=== PATIENT | male | born 1995 | race Caucasian/White ===

== ENCOUNTER 2016-07-17 20:55 | Emergency (ER) | payer OTHER ==
[2016-07-17 21:06] VITALS: BP 135/69
[2016-07-17] MEDS ORDERED: predniSONE TAB* 20 MG PO ONE (21:25)
[2016-07-17] MEDS ORDERED: hydrOXYzine HCL TAB* 50 MG PO ONE (21:25)
[2016-07-17] MEDS ORDERED: hydrOXYzine HCL TAB* 25 MG PO ONE (21:35)
--- NOTE | 2016-07-17 21:35 | UC ---
Throat Pain/Nasal Baron HPI - HPI Summary HPI Summary: Has bad allergies in the spring and early summer, has been having significant symptoms for more than a week. Much worse today after spending all day outside, eyes have turned very red and itchy and allergy eye drops are not helping. Taking daily antihistamine but doesn't use steroid nasal spray. no fevers, cough, or trouble breathing. - History of Current Complaint Chief Complaint: UCRespiratory Stated Complaint: SNEEZING,EYE IRRITATION,ALLERGIES Time Seen by Provider: 07/17/16 21:03 Hx Obtained From: Patient Onset/Duration: Gradual Onset, Lasting Days Severity: Moderate Cough: None Associated Signs & Symptoms: Positive: Nasal Discharge Related History: Seasonal Allergies - Allergies/Home Medications Allergies/Adverse Reactions: Allergies Allergy/AdvReac Type Severity Reaction Status Date / Time ENVIRONMENTAL Allergy Severe Anaphylatic Uncoded 07/17/16 21:33 Shock PMH/Surg Hx/FS Hx/Imm Hx Previously Healthy: Yes Other History Of: Negative For: HIV, Hepatitis B, Hepatitis C, Anticoagulant Therapy - Surgical History Surgical History: None - Family History Known Family History: Positive: Cardiac Disease, Hypertension, Diabetes - Social History Lives: With Family Alcohol Use: Weekly Substance Use Type: None, Marijuana - He used to smoke 2-3 grams of marijuana a day. He stopped 6 days ago. Substance Use Comment - Amount & Last Used: [place] Smoking Status (MU): Never Smoked Tobacco - Immunization History Vaccination Up to Date: Yes Review of Systems Constitutional: Negative Skin: Negative Eyes: Negative ENT: Nasal Discharge Respiratory: Negative Cardiovascular: Negative Gastrointestinal: Negative Genitourinary: Negative Motor: Negative Neurovascular: Negative Musculoskeletal: Negative Neurological: Negative Psychological: Negative All Other Systems Reviewed And Are Negative: Yes Physical Exam Triage Information Reviewed: Yes Appearance: Well-Appearing, No Pain Distress Vital Signs: Initial Vital Signs Temp 99.2 F 07/17/16 21:05 Pulse 67 07/17/16 21:05 Resp 16 07/17/16 21:05 BP 135/69 07/17/16 21:05 Pulse Ox 99 07/17/16 21:05 Vital Signs Reviewed: Yes Eye Exam: Other - EOM-I, PERRL Eyes: Positive: Conjunctiva Inflamed - bilat ENT: Positive: Hearing grossly normal, Nasal congestion, Nasal drainage, TMs normal Dental Exam: Normal Neck exam: Normal Neck: Positive: Supple, Nontender, No Lymphadenopathy Respiratory Exam: Normal Respiratory: Positive: Chest non-tender, Lungs clear, Normal breath sounds, No respiratory distress, No accessory muscle use Cardiovascular Exam: Normal Cardiovascular: Positive: RRR, No Murmur Musculoskeletal Exam: Normal Neurological Exam: Normal Neurological: Positive: Alert Psychological Exam: Normal Skin Exam: Normal Throat Pain/Nasal Course/Dx - Differential Dx/Diagnosis Provider Diagnoses: allergic rhinitis. allergic conjunctivitis Discharge - Discharge Plan Condition: Stable Disposition: HOME Patient Education Materials: Allergic Rhinitis (ED), Conjunctivitis (ED) Referrals: John Chacon MD [Primary Care Provider] - Additional Instructions: If you do not have clear improvement within the next week, you can see your primary care provider for a follow-up visit.
== END 2016-07-17 21:40 | disposition home or self-care (01) ==
LOC: UCEAST 20:55
DX: J30.9 Allergic rhinitis, unspecified (principal); H10.10 Acute atopic conjunctivitis, unspecified eye
CPT/HCPCS: 99202; A9270-GY; G0463; J7512

== ENCOUNTER 2017-01-23 23:17 | Emergency (ER) | payer OTHER ==
[2017-01-24] MEDS ORDERED: Acetaminophen TAB* 325 MG PO ONE (01:25)
[2017-01-24] MEDS ORDERED: Ondansetron ODT TAB* 4 MG PO ONE (01:56)
[2017-01-24] MEDS ORDERED: Amoxicillin PO (*) 250 MG CAP PO ONE (01:57)
--- NOTE | 2017-01-24 01:59 | ED ---
Throat Pain/Nasal Congestion - HPI Summary HPI Summary: 21M presents with fever and sore throat for a day. He is [place]. He admits to fatigue. He admits to nausea. He denies any chest pain or SOB. He denies any cough. He took ibuprofen for the fever. He denies any vomiting. He denies a history of strept. He denies any sinus congestion or ear pain. - History of Current Complaint Chief Complaint: EDFever Time Seen by Provider: 01/24/17 01:47 - Allergies/Home Medications Allergies/Adverse Reactions: Allergies Allergy/AdvReac Type Severity Reaction Status Date / Time ENVIRONMENTAL Allergy Severe Anaphylatic Uncoded 01/23/17 23:25 Shock PMH/Surg Hx/FS Hx/Imm Hx Endocrine/Hematology History: Denies: Hx Anticoagulant Therapy, Hx Diabetes, Hx Thyroid Disease Cardiovascular History: Denies: Hx Congestive Heart Failure, Hx Deep Vein Thrombosis, Hx Hypertension , Hx Myocardial Infarction, Hx Pacemaker/ICD Respiratory History: Denies: Hx Asthma, Hx Chronic Obstructive Pulmonary Disease (COPD), Hx Lung Cancer, Hx Pneumonia, Hx Pulmonary Embolism GI History: Denies: Hx Gall Bladder Disease, Hx Gastrointestinal Bleed, Hx Ulcer, Hx Urosepsis History: Denies: Hx Kidney Stones, Hx Renal Disease Neurological History: Reports: Hx Seizures - He had seizures when he was a child , but none since age [age] Denies: Hx Dementia, Hx Migraine, Hx Transient Ischemic Attacks (TIA) Psychiatric History: Reports: Hx Community Mental Health Tx, Hx of Violent Episodes Against Others, Hx Substance Abuse Denies: Hx Anxiety, Hx Eating Disorder, Hx Depression, Hx Inpatient Treatment , Hx Schizophrenia, Hx Bipolar Disorder - Surgical History Surgery Procedure, Year, and Place: denies Infectious Disease History: No Infectious Disease History: Denies: Hx Clostridium Difficile, Hx Hepatitis, Hx Human Immunodeficiency Virus (HIV), Hx of Known/Suspected MRSA, Hx Shingles, Hx Tuberculosis, Hx Known/ Suspected VRE, Hx Known/Suspected VRSA, History Other Infectious Disease, Traveled Outside the [place] in Last 30 Days - Family History Known Family History: Positive: Cardiac Disease, Hypertension, Diabetes - Social History Alcohol Use: Weekly Substance Use Type: Reports: None, Marijuana - He used to smoke 2-3 grams of marijuana a day. He stopped 6 days ago. Substance Use Comment - Amount & Last Used: [place] ON Smoking Status (MU): Never Smoked Tobacco Review of Systems Positive: Fever Positive: Sore Throat Negative: Chest Pain Negative: Shortness Of Breath All Other Systems Reviewed And Are Negative: Yes Physical Exam Triage Information Reviewed: Yes Vital Signs On Initial Exam: Initial Vitals Temp Pulse Resp BP Pulse Ox 100.8 F 97 16 114/79 98 01/23/17 23:20 01/23/17 23:20 01/23/17 23:20 01/23/17 23:20 01/23/17 23:20 Vital Signs Reviewed: Yes Appearance: Positive: Ill-Appearing Skin: Positive: Warm, Dry Head/Face: Positive: Normal Head/Face Inspection Eyes: Positive: Normal, EOMI, GRIFFIN, Conjunctiva Clear ENT: Positive: Pharyngeal erythema, TMs normal, Tonsillar swelling - +1, Uvula midline, Other - soft palate symmetric. Negative: Tonsillar exudate, Trismus, Muffled voice Neck: Positive: Supple, Nontender, No Lymphadenopathy Respiratory/Lung Sounds: Positive: Clear to Auscultation, Breath Sounds Present Cardiovascular: Positive: Normal, RRR Abdomen Description: Positive: Nontender, Soft Bowel Sounds: Positive: Present Musculoskeletal: Positive: Normal Neurological: Positive: Normal Psychiatric: Positive: Normal Diagnostics - Vital Signs Vital Signs Temp Pulse Resp BP Pulse Ox 01/23/17 23:20 100.8 F 97 16 114/79 98 - Laboratory Lab Results: Lab Results 01/24/17 01/24/17 Range/Units 01:05 01:07 Influenza A (Rapid) Negative (Negative) Influenza B (Rapid) Negative (Negative) Group A Strep Rapid Positive H (Negative) Lab Statement: Any lab studies that have been ordered have been reviewed, and results considered in the medical decision making process. EENT Course/Dx - Course Course Of Treatment: 21M presents with fever and sore throat for a day. He is [place]. He admits to fatigue. He admits to nausea. He denies any chest pain or SOB. He denies any cough. He took ibuprofen for the fever. He denies any vomiting. He denies a history of strept. He denies any sinus congestion or ear pain. on exam tonsils+1, uvula midline soft palate symmetric. strept pos. will treat with amoxicillin. patient understand and agrees with plan. - Differential Diagnoses Differential Diagnoses: Pharyngitis, Tonsilitis, URI/Bronchitis - Diagnoses Provider Diagnoses: Streptococcal sore throat Discharge - Discharge Plan Condition: Good Disposition: HOME Prescriptions: Amoxicillin PO (*) [Amoxicillin 500 MG CAP*] 500 mg PO Q12H #19 cap Patient Education Materials: Strep Throat (ED) Referrals: John Chacon MD [Primary Care Provider] - Additional Instructions: Take antibiotic twice a day for 10 days Take Tylenol or ibuprofen for pain/fever every 6 hours Can gargle salt water, use cough drops or products such as cloraseptic spray for pain Return to ED if develop difficulty breathing or unable to manage secretions, any new or worsening symptoms
[2017-01-24] MEDS ORDERED: Amoxicillin PO (*) 500 MG CAP PO ONE (02:19)
[2017-01-24 02:55] VITALS: BP 146/56
== END 2017-01-24 02:57 | disposition home or self-care (01) ==
LOC: ED 23:17
DX: J02.0 Streptococcal pharyngitis (principal); R53.83 Other fatigue; R11.0 Nausea; R56.9 Unspecified convulsions
CPT/HCPCS: 87502; 87651; 99283; A9270-GY

== ENCOUNTER 2017-06-13 10:16 | Emergency (ER) | payer SELFPAY ==
[2017-06-13 10:27] VITALS: BP 131/55
--- NOTE | 2017-06-13 10:40 | UC ---
Throat Pain/Nasal Baron HPI - HPI Summary HPI Summary: Pt. is a 21 y.o male who presents to the ER for fever, head ache and sore throat that started last night. Pt. denies cough, SOB, abd. pain, V/D. He has no past medical hx. Pt. to tylenol [employer]GER. Symptoms are mild in severity. Symptoms are improved with analgesics. - History of Current Complaint Hx Obtained From: Patient Pain Intensity: 6 <Karl Guerra - Last Filed: 06/13/17 11:08> <Gaby Aguilera - Last Filed: 06/13/17 11:24> - History of Current Complaint Chief Complaint: UCRespiratory Stated Complaint: HEADACHE, SORE THROAT Time Seen by Provider: 06/13/17 10:29 - Allergies/Home Medications Allergies/Adverse Reactions: Allergies Allergy/AdvReac Type Severity Reaction Status Date / Time ENVIRONMENTAL Allergy Severe Anaphylatic Uncoded 06/13/17 10:27 Shock PMH/Surg Hx/FS Hx/Imm Hx Previously Healthy: Yes Other History Of: Negative For: HIV, Hepatitis B, Hepatitis C, Anticoagulant Therapy - Surgical History Surgical History: None Surgery Procedure, Year, and Place: denies - Family History Known Family History: Positive: Cardiac Disease, Hypertension, Diabetes - Social History Occupation: Unemployed Lives: With Family Alcohol Use: None Substance Use Type: None Substance Use Comment - Amount & Last Used: [place] ON Smoking Status (MU): Never Smoked Tobacco - Immunization History Vaccination Up to Date: Yes <Karl Guerra - Last Filed: 06/13/17 11:08> Review of Systems Constitutional: Fever, Chills, Fatigue Skin: Negative Eyes: Negative ENT: Sore Throat, Sinus Congestion Respiratory: Negative Cardiovascular: Negative Gastrointestinal: Negative Genitourinary: Negative Neurovascular: Negative Musculoskeletal: Negative Neurological: Headache Is Patient Immunocompromised?: No All Other Systems Reviewed And Are Negative: Yes <Karl Guerra - Last Filed: 06/13/17 11:08> Physical Exam Triage Information Reviewed: Yes Appearance: Well-Appearing - Pt. sitting up in bed in NAD. Vital Signs: Initial Vital Signs Temp 99.6 F 06/13/17 10:25 Pulse 87 06/13/17 10:25 Resp 18 06/13/17 10:25 BP 131/55 05/09/18 10:25 Pulse Ox 98 06/13/17 10:25 Vital Signs Reviewed: Yes Eye Exam: Normal Eyes: Positive: Conjunctiva Clear ENT: Positive: Nasal congestion, TMs normal, Tonsillar swelling - Bilateral moderate tonsilar erythema without excudate. Uvula is midline. Tolerating secretions. Neck exam: Normal Neck: Positive: Supple, No Lymphadenopathy. Negative: Nuchal Rigidity Respiratory Exam: Normal Respiratory: Positive: Lungs clear Cardiovascular Exam: Normal Cardiovascular: Positive: RRR Musculoskeletal Exam: Normal Neurological Exam: Normal Psychological Exam: Normal Skin Exam: Normal <Karl Guerra - Last Filed: 06/13/17 11:08> Vital Signs: Initial Vital Signs Temp 99.6 F 06/13/17 10:25 Pulse 87 06/13/17 10:25 Resp 18 06/13/17 10:25 BP 131/55 06/13/17 10:25 Pulse Ox 98 06/13/17 10:25 <Gaby Aguilera - Last Filed: 06/13/17 11:24> Throat Pain/Nasal Course/Dx - Course Course Of Treatment: Pt. presenting to UC for fever, sore throat and h/a. O2 saturation is 98% on RA which is normal. Rapid strep is negative. Suspect viral etiology. Will treat conservatively at this time. Advised pt. tylenol or motrin for fever and pain. Increase fluids and rest. To f.u with PCP. To return to UC or ER if symptoms change or worsen. Pt. understands and agrees with plan. - Differential Dx/Diagnosis Differential Diagnosis/HQI/PQRI: Otitis Media, Pharyngitis, Sinusitis, Tonsillitis Provider Diagnoses: Viral syndrome <Karl Guerra - Last Filed: 06/13/17 11:08> Discharge - Sign-Out/Discharge Documenting (check all that apply): Discharge/Admit/Transfer - Billing Disposition and Condition Condition: GOOD Disposition: HOME <Karl Guerra - Last Filed: 06/13/17 11:08> - Billing Disposition and Condition Condition: GOOD Disposition: HOME <Gaby Aguilera - Last Filed: 06/13/17 11:24> - Discharge Plan Condition: Good Disposition: HOME Patient Education Materials: Viral Syndrome (ED) Referrals: John Chacon MD [Primary Care Provider] - Additional Instructions: Follow up with your PCP Tylenol or Motrin for fever and pain as directed Increase fluids and rest Return to UC or present to ER for re-evaluation if symptoms change or worsen Attestation Statement User Type: Provider - I was available for consult. This patient was seen by the CABRERA. The patient was not presented to, seen by, or examined by me. -Juanjose <Gaby Aguilera - Last Filed: 06/13/17 11:24>
[2017-06-13] MEDS ORDERED: Albuterol 2.5 MG/3 ML NEB.SOL* (0.083%) INH ONE (10:49)
== END 2017-06-13 11:08 | disposition home or self-care (01) ==
LOC: UCEAST 10:16
DX: B34.9 Viral infection, unspecified (principal)
CPT/HCPCS: 87651; 99211; G0463

== ENCOUNTER 2017-06-16 18:53 | Emergency (ER) | payer SELFPAY ==
[2017-06-16 19:01] VITALS: BP 144/78
--- NOTE | 2017-06-16 19:09 | ED ---
Throat Pain/Nasal Congestion - HPI Summary HPI Summary: Patient is a 21 y/o male c/o sore throat and painful swallowing for the last 2 days . He denies any trismus, or dysphagia. No drooling or swelling of the tongue or lips. He is able to swallow but has pain. Positive sinus tenderness. He also had a DUNCAN this afternoon. - History of Current Complaint Chief Complaint: UCRespiratory Time Seen by Provider: 06/16/17 19:01 Hx Obtained From: Patient - Epiglottits Risk Factors Epiglottis Risk Factors: Negative - Allergies/Home Medications Allergies/Adverse Reactions: Allergies Allergy/AdvReac Type Severity Reaction Status Date / Time ENVIRONMENTAL Allergy Severe Anaphylatic Uncoded 06/16/17 19:01 Shock PMH/Surg Hx/FS Hx/Imm Hx Endocrine/Hematology History: Denies: Hx Anticoagulant Therapy, Hx Diabetes, Hx Thyroid Disease Cardiovascular History: Denies: Hx Congestive Heart Failure, Hx Deep Vein Thrombosis, Hx Hypertension , Hx Myocardial Infarction, Hx Pacemaker/ICD Respiratory History: Denies: Hx Asthma, Hx Chronic Obstructive Pulmonary Disease (COPD), Hx Lung Cancer, Hx Pneumonia, Hx Pulmonary Embolism GI History: Denies: Hx Gall Bladder Disease, Hx Gastrointestinal Bleed, Hx Ulcer, Hx Urosepsis History: Denies: Hx Kidney Stones, Hx Renal Disease Neurological History: Reports: Hx Seizures - He had seizures when he was a child , but none since age [age] Denies: Hx Dementia, Hx Migraine, Hx Transient Ischemic Attacks (TIA) Psychiatric History: Reports: Hx Community Mental Health Tx, Hx of Violent Episodes Against Others, Hx Substance Abuse Denies: Hx Anxiety, Hx Eating Disorder, Hx Depression, Hx Inpatient Treatment , Hx Schizophrenia, Hx Bipolar Disorder - Surgical History Surgery Procedure, Year, and Place: denies Infectious Disease History: No Infectious Disease History: Denies: Hx Clostridium Difficile, Hx Hepatitis, Hx Human Immunodeficiency Virus (HIV), Hx of Known/Suspected MRSA, Hx Shingles, Hx Tuberculosis, Hx Known/ Suspected VRE, Hx Known/Suspected VRSA, History Other Infectious Disease, Traveled Outside the [place] in Last 30 Days - Family History Known Family History: Positive: Cardiac Disease, Hypertension, Diabetes - Social History Alcohol Use: None Substance Use Type: Reports: None Substance Use Comment - Amount & Last Used: [place] ON Smoking Status (MU): Never Smoked Tobacco Review of Systems Positive: Fever, Chills Eyes: Negative ENT: Negative Positive: Sore Throat Cardiovascular: Negative Respiratory: Negative Gastrointestinal: Negative Genitourinary: Negative Musculoskeletal: Negative Skin: Negative Neurological: Negative Psychological: Normal All Other Systems Reviewed And Are Negative: Yes Physical Exam - Summary Physical Exam Summary: Vital signs: Reviewed Gen.: Patient is a well developed and nourished male in no acute distress. Patient is sitting comfortably on the stretcher. Head: Normacephalic and atraumatic Eyes: PERRLA, EOMI x2. Ears: Right ear canal and TM WNL and Left ear canal and TM WNL Nose and mouth: Nose with erythematous mucosa and green discharge, mild pharyngeal erythema with out exudate. Positive maxillary sinus tenderness. Neck: Supple, Positive bilateral submandibular and anterior cervical lymphadenopathy. No JVD Lungs: CTA B/L CVS: S1 & S2 present. No murmurs appreciated. ABDOMEN: Soft NT w/ positive BS. EXT: FROM x 4 NEURO: A+O X 3. Triage Information Reviewed: Yes Vital Signs On Initial Exam: Initial Vitals Temp Pulse Resp BP Pulse Ox 102.3 F 110 18 144/78 100 06/16/17 18:58 06/16/17 18:58 06/16/17 18:58 06/16/17 18:58 06/16/17 18:58 Vital Signs Reviewed: Yes Diagnostics - Vital Signs Vital Signs Temp Pulse Resp BP Pulse Ox 06/16/17 18:58 102.3 F 110 18 144/78 100 - Laboratory Lab Statement: Any lab studies that have been ordered have been reviewed, and results considered in the medical decision making process. EENT Course/Dx - Course Assessment/Plan: Rapid strep is: negative. He was given Tylenol for fever. However patient has a fever, pharyngeal erythema and has green nasal discharge with slight sinus tenderness. Thus, I think patient has a bacterial infection and he was given Augmentin. Patient was given a prescription for Augmentin and he will take Ibuprofen for pain. I have no suspicion for epiglottitis since patient is not drooling and he is able to take medication w/o any distress. Physical exam did not reveal a retropharyngeal abscess. He will f/u with PCP in the next couple days. If symptoms worsen will return to the or ED immediately. Patient is hemodynamically stable and A+O x 3. Before discharge he drank a bottle of water and he was encourage to hydrate himself well. - Differential Diagnoses Differential Diagnoses: Epiglottitis, Influenza, Laryngitis, Pharyngitis, Sinusitis, Tonsilitis - Diagnoses Provider Diagnoses: Pharyngitis, Sinusitis Discharge - Sign-Out/Discharge Documenting (check all that apply): Discharge/Admit/Transfer - Discharge Plan Condition: Stable Disposition: HOME Prescriptions: Amoxicillin/Clavulanate TAB* [Augmentin TAB 875*] 875 mg PO BID #10 tab Ibuprofen TAB* [Motrin TAB* 800 MG] 800 mg PO Q8H #30 tab Patient Education Materials: Pharyngitis (ED), Sinusitis (ED) Referrals: John Chacon MD [Primary Care Provider] - Additional Instructions: Take medications as instructed Increase your fluid intake Return to the if symptoms worsen - Billing Disposition and Condition Condition: STABLE Disposition: HOME
[2017-06-16] MEDS ORDERED: Amoxicillin/Clavulanate TAB* 875 MG PO ONE (19:12)
[2017-06-16] MEDS ORDERED: Acetaminophen TAB* 325 MG PO ONE (19:15)
== END 2017-06-16 19:49 | disposition home or self-care (01) ==
LOC: UCEAST 18:53
DX: J02.9 Acute pharyngitis, unspecified (principal); J32.9 Chronic sinusitis, unspecified
CPT/HCPCS: 87651; 99212; A9270-GY; G0463

== ENCOUNTER 2018-06-10 19:11 | Emergency (ER) | payer SELFPAY ==
[2018-06-10 19:49] VITALS: BP 127/56
--- NOTE | 2018-06-10 20:15 | UC ---
Complaint Female HPI - HPI Summary HPI Summary: 22 yo male presents with loose stools for the last 2-3 days. He tells me that about a week ago he started taking a new vitamin supplement for when he works out at the gym. Over the last 2-3 days he has noticed that whenever he eats, he will have loose stools a few hours later. He also says that his urine has appeared darker in color. He is eating and drinking well. Denies fever, abdominal pain, n/v, or pain with urination. - History Of Current Complaint Chief Complaint: UCGU Stated Complaint: FACIAL SWELLING, AND ABDOMINAL PAIN Time Seen by Provider: 06/10/18 20:15 Hx Obtained From: Patient Onset/Duration: Gradual Onset Severity Currently: None Pain Intensity: 0 Pain Scale Used: 0-10 Numeric - Allergies/Home Medications Allergies/Adverse Reactions: Allergies Allergy/AdvReac Type Severity Reaction Status Date / Time ENVIRONMENTAL Allergy Severe Eyes Uncoded 06/10/18 19:52 Itchy/Swollen/Red/Watery PMH/Surg Hx/FS Hx/Imm Hx - Additional Past Medical History Additional PMH: None Other History Of: Negative For: HIV, Hepatitis B, Hepatitis C, Anticoagulant Therapy - Surgical History Surgical History: None Surgery Procedure, Year, and Place: denies - Family History Known Family History: Positive: Cardiac Disease, Hypertension, Diabetes - Social History Occupation: Employed Part-time Lives: With Family Alcohol Use: None Substance Use Type: None Substance Use Comment - Amount & Last Used: [place] ON Smoking Status (MU): Never Smoked Tobacco - Immunization History Vaccination Up to Date: Yes Review of Systems All Other Systems Reviewed And Are Negative: Yes Constitutional: Positive: Negative Skin: Positive: Negative Respiratory: Positive: Negative Cardiovascular: Positive: Negative Gastrointestinal: Positive: Diarrhea Genitourinary: Positive: Negative Neurovascular: Positive: Negative Neurological: Positive: Negative Psychological: Positive: Negative Physical Exam - Summary Physical Exam Summary: GENERAL: NAD. WDWN. No pain distress. SKIN: No rashes, sores, lesions, or open wounds. NECK: Supple. Nontender. No lymphadenopathy. CHEST: CTAB. No r/r/w. No accessory muscle use. Breathing comfortably and in no distress. CV: RRR. Without m/r/g. Pulses intact. Cap refill <2seconds ABDOMEN: Soft. NTTP. No distention or guarding. No organomegaly. No CVA tenderness. Bowel sounds present NEURO: Alert. PSYCH: Age appropriate behavior. Triage Information Reviewed: Yes Vital Signs: Initial Vital Signs Temp 99.0 F 06/10/18 19:46 Pulse 68 06/10/18 19:46 Resp 16 06/10/18 19:46 BP 127/56 06/10/18 19:46 Pulse Ox 100 06/10/18 19:46 Laboratory Tests 06/10/18 20:18 POC Urine Color Yellow POC Urine Clarity Clear POC Urine pH 6.0 POC Ur Specif [place] 1.020 POC Urine Protein 2+ A POC Ur Glucose (UA) Negative POC Urine Ketones Negative POC Urine Blood Negative POC Urine Nitrite Negative POC Urine Bilirubin Negative POC Urine Urobilinogen 0.2 POC U Leukocyte Esteras Negative Vital Signs Reviewed: Yes Complaint Female Dx - Course Course Of Treatment: I suspect his symptoms are due to the new supplement he has been taking. Advised to stop taking this and eat a regular healthy diet to see if his symptoms improve. - Differential Dx/Diagnosis Provider Diagnosis: Loose stools Discharge - Sign-Out/Discharge Documenting (check all that apply): Patient Departure All imaging exams completed and their final reports reviewed: No Studies - Discharge Plan Condition: Stable Disposition: HOME Patient Education Materials: Regular Diet (ED) Forms: *Work Release Referrals: No Primary Care Phys,NOPCP [Primary Care Provider] - Additional Instructions: If you develop a fever, shortness of breath, chest pain, new or worsening symptoms - please call your PCP or go to the ED immediately. I recommend that you stop taking your new vitamin supplement for 1 week to see if this improves your symptoms. - Billing Disposition and Condition Condition: STABLE Disposition: Home
== END 2018-06-10 20:37 | disposition home or self-care (01) ==
LOC: UCEAST 19:11
DX: R19.7 Diarrhea, unspecified (principal)
CPT/HCPCS: 81003; 99211; G0463

== ENCOUNTER 2018-12-06 21:38 | Emergency (ER) | payer SELFPAY ==
[2018-12-06 21:51] VITALS: BP 119/74
[2018-12-06] MEDS ORDERED: Amoxicillin PO (*) 500 MG CAP PO ONE (21:55)
--- NOTE | 2018-12-06 21:57 | UC ---
Throat Pain/Nasal Baron HPI - HPI Summary HPI Summary: 23-year-old male comes in with a chief complaint of 7 days of upper respiratory tract infection symptoms. He's got yellow rhinorrhea sinus pressure. He did have a Cough the cough is improved. No recent fevers measured. Hot steam has helped with the sinus congestion. - History of Current Complaint Chief Complaint: UCRespiratory Stated Complaint: POSS SINUS INFECTION, JAW LOCKING Time Seen by Provider: 12/06/18 21:45 Pain Intensity: 6 - Allergies/Home Medications Allergies/Adverse Reactions: Allergies Allergy/AdvReac Type Severity Reaction Status Date / Time ENVIRONMENTAL Allergy Severe Eyes Uncoded 12/06/18 21:50 Itchy/Swollen/Red/Watery PMH/Surg Hx/FS Hx/Imm Hx Previously Healthy: Yes Other History Of: Negative For: HIV, Hepatitis B, Hepatitis C, Anticoagulant Therapy - Surgical History Surgical History: None Surgery Procedure, Year, and Place: denies - Family History Known Family History: Positive: Cardiac Disease, Hypertension, Diabetes - Social History Alcohol Use: None Substance Use Type: None Substance Use Comment - Amount & Last Used: STATES LAST SMOKED MARIJUANA ON Smoking Status (MU): Former Smoker Type: Cigars - Immunization History Vaccination Up to Date: Yes Review of Systems All Other Systems Reviewed And Are Negative: Yes Constitutional: Positive: Other - SEE HPI Skin: Positive: Negative Eyes: Positive: Negative ENT: Positive: Nasal Discharge, Sinus Congestion Respiratory: Positive: Cough Cardiovascular: Positive: Negative Gastrointestinal: Positive: Negative Motor: Positive: Negative Neurovascular: Positive: Negative Musculoskeletal: Positive: Negative Neurological: Positive: Negative Psychological: Positive: Negative Is Patient Immunocompromised?: No Physical Exam Triage Information Reviewed: Yes Appearance: Well-Appearing, No Pain Distress, Well-Nourished Vital Signs: Initial Vital Signs Temp 98.2 F 12/06/18 21:44 Pulse 64 12/06/18 21:44 Resp 16 12/06/18 21:44 BP 119/74 12/06/18 21:44 Pulse Ox 100 12/06/18 21:44 Vital Signs Reviewed: Yes Eye Exam: Normal Eyes: Positive: Conjunctiva Clear ENT: Positive: Pharyngeal erythema, Nasal congestion, Nasal drainage, TMs normal Neck: Positive: Supple Respiratory: Positive: Lungs clear, Normal breath sounds, No respiratory distress Cardiovascular: Positive: RRR Musculoskeletal: Positive: Strength Intact, ROM Intact Neurological: Positive: Alert, Muscle Tone Normal Psychological: Positive: Age Appropriate Behavior Skin Exam: Normal Throat Pain/Nasal Course/Dx - Course Course Of Treatment: DISCUSSED VIRAL VERSES BACTERIAL INFECTIONS AND THE ROLE OF ANTIBIOTICS. THE PATIENT PREFERS TO BE ON ANTIBIOTICS AT THIS TIME. - Differential Dx/Diagnosis Provider Diagnosis: Sinusitis Discharge ED - Sign-Out/Discharge Documenting (check all that apply): Patient Departure All imaging exams completed and their final reports reviewed: No Studies - Discharge Plan Condition: Stable Disposition: HOME Prescriptions: Amoxicillin PO (*) [Amoxicillin 875 MG (*)] 875 mg PO BID #19 tab Patient Education Materials: Sinusitis (ED) Forms: *Work Release Referrals: [facility] [Outside] Additional Instructions: FOLLOW UP WITH YOUR DOCTOR IF NOT COMPLETELY IMPROVED. GET RECHECKED SOONER IF WORSE OR ANY QUESTIONS OR CONCERNS. - Billing Disposition and Condition Condition: STABLE Disposition: Home
== END 2018-12-06 22:06 | disposition home or self-care (01) ==
LOC: UCEAST 21:38
DX: J32.9 Chronic sinusitis, unspecified (principal); Z91.09 Other allergy status, other than to drugs and biological substances; Z87.891 Personal history of nicotine dependence
CPT/HCPCS: 99212; A9270-GY; G0463